=== PATIENT | male | born 1970 | race Asian ===

== ENCOUNTER 2017-05-25 06:00 | Emergency (ER) | payer OTHER ==
[~2017-05-25 06:00] MED LIST: ALLO300T PO; AMLO5TAB4 PO; ASPI-515 PO; CODE15TA; FURO-92 PO; HYDR25TA6 PO; IBUP100T9 PO; LISI-170 PO; POTA10TA11 PO; PROM5POW PO; SIMV40TA3 PO; SIMV80TA3 PO
[2017-05-25] MEDS ORDERED: EPINEPHRINE SYRINGE 0.1 MG/ML, 10ML ONE (07:44)
[2017-05-25] MEDS ORDERED: AMIODARONE 50 MG/ML, 3ML ONE (07:44)
[2017-05-25] MEDS ORDERED: SODIUM BICARB 8.4%, 50ML SYRINGE ONE (07:44)
[2017-05-25] MEDS ORDERED: DEXTROSE 50%, 50ML SYRINGE ONE (07:44)
[2017-05-25] MEDS ORDERED: NALOXONE 1 MG/ML, 2ML ONE (07:44)
[2017-05-25] MEDS ORDERED: SUCCINYLCHOLINE 20 MG/ML, 10ML ONE (07:44)
[2017-05-25] MEDS ORDERED: CODE BLUE RESPONSE XX ONE (07:44)
[2017-05-25] MEDS ORDERED: ATROPINE SYRINGE 0.1 MG/ML, 10ML ONE (14:00)
[2017-05-25] MEDS ORDERED: EPINEPHRINE 1 MG/ML, 1ML ONE (14:00)
== END 2017-05-25 08:03 | disposition expired ==
LOC: ED 07:26
DX: I46.9 Cardiac arrest, cause unspecified (principal); E78.5 Hyperlipidemia, unspecified; I10 Essential (primary) hypertension; I25.2 Old myocardial infarction
CPT/HCPCS: 31500; 31605; 36415; 80047; 92950; 92960; 99291; 99292; J0171; J0282; J0330; J0461; J2310